=== PATIENT | female | born 1965 | race Caucasian/White ===

== ENCOUNTER → 2018-04-14 | Outpatient (CLI) | payer OTHER ==
[~2018-04-14] MED LIST: NAPR-683 PO; OMEP20CA9 PO; PREG50CA PO; TRAM50TA PO; ZOLP5TAB PO
--- NOTE | 2018-04-14 17:23 | KCIC ---
Bilateral digital screening mammograms: Reason for examination: Routine screening. Comparison is made to previous studies dated 02/13/2016 and 10/01/2013. Interpretation was made with the benefit of CAD. The skin and nipples show no abnormalities. No abnormal axillary lymph nodes are seen. The breast parenchyma shows scattered fibroglandular density. (Breast density: Category B.) There are no dominant masses, suspicious calcifications or architectural distortions. Impression: No evidence of malignancy. Recommend routine screening. BI-RADS Category 1: Negative. "Our facility is accredited by the [employer] Mammography [employer]." This patient's information has been entered into a reminder system for the patient to be notified with the results of her examination and a target date for the next mammogram. Electronically signed by: Dina Mcneil MD (04/14/2018 5:18 PM) [id number]
== END | disposition home or self-care (01) ==
LOC: KCIC MAMMO 16:17
PROVIDERS: ATTEND Family Medicine
DX: Z12.31 Encounter for screening mammogram for malignant neoplasm of breast (principal)
CPT/HCPCS: 77067

== ENCOUNTER → 2019-05-04 | Outpatient (CLI) | payer OTHER ==
[~2019-05-04] MED LIST changes: +OMEP20CA16 PO; -OMEP20CA9 PO
--- NOTE | 2019-05-04 16:49 | KCIC ---
Bilateral digital screening mammograms: Reason for examination: Routine screening. Comparison is made to previous studies dated 04/14/2018 and 02/13/2016. Interpretation was made with the benefit of CAD. The skin and nipples show no abnormalities. No abnormal axillary lymph nodes are seen. The breast parenchyma shows scattered fibroglandular density. (Breast density: Category B.) There is a small circumscribed nodule at the 9:00 B position of the right breast measuring approximately 6 mm in size. This may represent a cyst. Recommend further evaluation with ultrasound. There are no other new dominant masses, suspicious calcifications or architectural distortions. Impression: Small 6 mm circumscribed nodule at the 9:00 B position of the right breast. This may represent a cyst. Recommend further evaluation with ultrasound. BI-RADS Category 0: Incomplete. Needs additional imaging evaluation. "Our facility is accredited by the [employer] Mammography [employer]." This patient's information has been entered into a reminder system for the patient to be notified with the results of her examination and a target date for the next mammogram. Electronically signed by: Dina Mcneil MD (05/04/2019 4:46 PM) [id number]
== END | disposition home or self-care (01) ==
LOC: KCIC MAMMO 16:22
DX: Z12.31 Encounter for screening mammogram for malignant neoplasm of breast (principal); N63.11 Unspecified lump in the right breast, upper outer quadrant
CPT/HCPCS: 77067

== ENCOUNTER → 2019-05-12 | Outpatient (CLI) | payer OTHER ==
--- NOTE | 2019-05-12 08:27 | KCIC ---
EXAM: Right breast sonogram. HISTORY: 53-year-old female presents for evaluation of a nodular density within the right breast demonstrated on a mammogram dated 05/04/2019. TECHNIQUE: Sonographic imaging of the right breast targeted to sites of mammographic nodularity was performed. COMPARISON: 05/04/2019. FINDINGS: There is a solid-appearing hypoechoic lesion at the 9:00 position 6 cm from the nipple measuring 6.1 mm in maximum dimension. This corresponds with the mammographic finding of concern. The margins of this lesion are slightly indistinct. There is no architectural distortion or cyst posterior shadowing. There is no convincing internal blood flow. No additional lesion is seen. IMPRESSION: 1. 6.1 mm solid-appearing lesion at the 9:00 position of the right breast. This may represent a benign nodule such as a fibroadenoma. However, given the new mammographic finding and slightly indistinct lesion margins, sonographic guided biopsy is recommended for definitive diagnosis. 2. BI-RADS Category 4: Suspicious abnormality. Sonographic guided biopsy is recommended. These findings and recommendations were discussed with the patient and will be communicated to the referring physician office. Electronically signed by: Grisel Akers MD (05/12/2019 8:24 AM) [email or web address]
== END | disposition home or self-care (01) ==
LOC: KCIC US 07:46
DX: N64.89 Other specified disorders of breast (principal)
CPT/HCPCS: 76641